=== PATIENT | male | born 1940 | race Caucasian/White ===

== ENCOUNTER → 2018-03-07 10:06 | Outpatient (CLI) | payer MEDICARE, SELFPAY | PROVIDERS: Visit Provider Urology | DX: C61 Malignant neoplasm of prostate (principal) | CPT/HCPCS: 36415; 84153 ==

== ENCOUNTER → 2019-02-21 12:41 | Outpatient (CLI) | payer MEDICARE, SELFPAY ==
[2019-02-21 14:11] LABS: Prostate Specific Antigen 1.27 ng/mL (0.10-4.00)
== END ==
PROVIDERS: Visit Provider Urology
DX: C61 Malignant neoplasm of prostate (principal)
CPT/HCPCS: 36415; 84153

== ENCOUNTER → 2020-12-19 11:42 | Outpatient (CLI) | payer MEDICARE, SELFPAY ==
[2020-12-19 12:48] LABS: BUN Creatinine Ratio 20.2 (6-22); Blood Urea Nitrogen 17 mg/dL (9-20); Calcium 9.2 mg/dL (8.4-10.2); Carbon Dioxide 29 mmol/L (22-32); Chloride 103 mmol/L (98-107); Estimated Glomerular Filt Rate > 60.0 mL/min (>60); Glucose 90 mg/dL (80-110); HEMOLYSIS < 15 (0-50); Potassium 3.5 mmol/L (3.4-5.1); Sodium 137 mmol/L (137-145)
== END ==
PROVIDERS: PCP Student in an Organized Health Care Education/Training Program; Referring Provider Student in an Organized Health Care Education/Training Program; Visit Provider Student in an Organized Health Care Education/Training Program
DX: I10 Essential (primary) hypertension (principal); L03.032 Cellulitis of left toe
CPT/HCPCS: 36415; 80048

== ENCOUNTER → 2021-05-06 10:03 | Outpatient (CLI) | payer MEDICARE, SELFPAY ==
--- NOTE | 2021-05-06 10:04 | DI.RAD.S_ITS ---
PROCEDURE: XR ACUTE ABDOMEN SERIES INDICATIONS: obstipation TECHNIQUE: One view chest and two views of the abdomen were acquired. COMPARISON: None. FINDINGS: Surgical changes and devices: Left hip arthroplasty. Chest: Lungs are clear. Heart size is normal. No pleural effusions. No pneumoperitoneum. Abdomen: Bowel gas pattern is normal. No suspicious calcifications. Visualized solid organ contours appear normal. Bones: No suspicious bony lesions. IMPRESSION: No acute process. Dictated by: Trevon Andrews M.D. on 05/06/2021 at 11:02 Approved by: Trevon Andrews M.D. on 05/06/2021 at 11:03
[2021-05-06 10:47] LABS: Add Manual Diff / Slide Review NO; Basophils Absolute Auto 0 /uL (0-100); Basophils Percent Auto 0.3 % (0-2); Eosinophils Absolute Auto 100 /uL (0-450); Eosinophils Percent Auto 0.6 % (2-4); Hemoglobin 17.4 g/dL (13.5-17.5); Lymphocytes Absolute Auto 2000 /uL (1100-4500); Lymphocytes Percent Auto 20.5 % (25-40); Mean Corpuscular HGB Conc 34.8 % (30-36); Mean Corpuscular Hemoglobin 32.8 PG (26-34); Mean Corpuscular Volume 94.3 fL (80-100); Monocytes Absolute Auto 900 /uL (0-900); Neutrophils Absolute Auto 6800 /uL (1500-7000); Neutrophils Percent Auto 69.6 % (50-75); Platelet Count 198 X10^3/uL (150-400); Red Cell Distribution Width 13.1 % (11.6-14.8); White Blood Cell Count 9.7 X10^3/uL (4.5-11.0)
[2021-05-06 11:08] LABS: Alanine Aminotransferase 20 IU/L (<50); Albumin 4.5 g/dL (3.5-5.0); Albumin Globulin Ratio 1.7 (1.0-2.8); Alkaline Phosphatase 54 U/L (38-126); Aspartate Aminotransferase 23 IU/L (17-59); BUN Creatinine Ratio 24.1 (6-22); Bilirubin Total 1.6 mg/dL (0.2-1.3); Blood Urea Nitrogen 26 mg/dL (9-20); Calcium 9.3 mg/dL (8.4-10.2); Carbon Dioxide 32 mmol/L (22-32); Chloride 96 mmol/L (98-107); Estimated Glomerular Filt Rate > 60.0 mL/min (>60); Globulin 2.7 g/dL (1.7-4.1); Glucose 108 mg/dL (80-110); HEMOLYSIS < 15 (0-50); Potassium 2.9 mmol/L (3.4-5.1); Sodium 134 mmol/L (137-145); Total Protein 7.2 g/dL (6.3-8.2)
[2021-05-06 11:44] LABS: TSH w/ Reflex to FT4 2.13 uIU/mL (0.47-4.68)
== END ==
PROVIDERS: PCP Student in an Organized Health Care Education/Training Program; Referring Provider Internal Medicine; Visit Provider Internal Medicine
DX: I10 Essential (primary) hypertension (principal); K59.00 Constipation, unspecified
CPT/HCPCS: 36415; 74022; 80053; 84443; 85025

== ENCOUNTER → 2024-03-16 10:25 | Outpatient (CLI) | payer MEDICARE, SELFPAY ==
[2024-03-16 12:55] LABS: Prostate Specific Antigen 0.085 ng/mL (0.10-4.00)
== END ==
PROVIDERS: PCP Student in an Organized Health Care Education/Training Program; Referring Provider Nurse Practitioner Family; Visit Provider Nurse Practitioner Family
DX: C61 Malignant neoplasm of prostate (principal)
CPT/HCPCS: 36415; 84153

== ENCOUNTER 2024-11-25 12:53 | Emergency (ER) | payer MEDICARE, SELFPAY ==
[2024-11-25 13:10] VITALS: BP 189/100; PULSE 89; RESP 22; O2SAT 98; BMI 23.6
[2024-11-25 13:26] LABS: Add Manual Diff / Slide Review NO; Basophils Absolute Auto 0 /uL (0-100); Basophils Percent Auto 0.2 % (0-2); Eosinophils Absolute Auto 0 /uL (0-450); Eosinophils Percent Auto 0.4 % (2-4); Hematocrit 40.7 % (41-53); Hemoglobin 14.1 g/dL (13.5-17.5); Lymphocytes Absolute Auto 900 /uL (1100-4500); Lymphocytes Percent Auto 14.6 % (25-40); Mean Corpuscular HGB Conc 34.6 % (30-36); Mean Corpuscular Hemoglobin 32.1 PG (26-34); Mean Corpuscular Volume 92.8 fL (80-100); Monocytes Absolute Auto 500 /uL (0-900); Monocytes Percent Auto 7.4 % (3-14); Neutrophils Absolute Auto 4800 /uL (1500-7000); Neutrophils Percent Auto 77.4 % (50-75); Platelet Count 290 X10^3/uL (150-400); Red Blood Cell Count 4.39 X10^6/uL (4.5-5.9); Red Cell Distribution Width 13.3 % (11.6-14.8); White Blood Cell Count 6.1 X10^3/uL (4.5-11.0)
--- NOTE | 2024-11-25 13:45 | ED.ABDPAIN ---
HPI - Abdominal Pain General Chief Complaint: Abdominal Pain Stated Complaint: hard of rock stomach and filled up Time Seen by Provider: 11/25/24 13:03 Source: patient Mode of arrival: Ambulatory History of Present Illness HPI narrative: Patient here with . Complains 2 weeks abdominal bloating but no pain. No bowel movement changes. No black or bloody stools. No prior history of abdominal surgical history no history of colonoscopy. No prior history of pancreatitis or liver disease. While in [place] patient had ultrasound done because he had surgery for his peripheral artery disease in his legs and found to have ascites. Patient has no trouble breathing. No back pain. No night sweats or weight loss. Related Data Home Medications Medication Instructions Recorded Confirmed Lupron? IM 12/19/20 03/23/22 amlodipine 10 mg tablet 10 mg PO DAILY 12/19/20 03/23/22 losartan 50 mg-hydrochlorothiazide 1 tab PO DAILY 12/19/20 03/23/22 12.5 mg tablet metoprolol succinate 50 mg 50 mg PO DAILY 12/19/20 03/23/22 tablet,extended release 24 hr Allergies Allergy/AdvReac Type Severity Reaction Status Date / Time No Known Drug Allergies Allergy Verified 11/25/24 13:10 Review of Systems Review of Systems Narrative: GENERAL: Negative chills, fatigue, malaise, fever, sweats. HEENT: Negative sinus pain, ear pain, sore throat RESPIRATORY: Negative dyspnea, cough CARDIOVASCULAR: Negative chest pain, palpitations GASTROINTESTINAL: Negative vomiting, nausea, positive abdominal pain : Negative dysuria, frequency, hematuria MUSCULOSKELETAL: Negative muscle or bony pain SKIN: Negative rash, skin lesions NEUROLOGIC: Negative weakness, numbness ROS Unobtainable: All systems reviewed & are unremarkable except as noted in HPI and below Patient History Social History Smoking Status: Former smoker Smoking Status: Former smoker Alcohol type: hard liquor Exam Narrative Exam Narrative: GENERAL: in no distress, not toxic not dyspneic HEAD: Normocephalic. EYES: Pupils equal round ENT: Mucous membranes moist. NECK: Trachea midline. CARDIOVASCULAR: Regular rate and rhythm RESPIRATORY: Clear to auscultation. Breath sounds equal bilaterally. No wheezes, rales, or rhonchi. GASTROINTESTINAL: Abdomen soft, non-tender, abdomen is slightly distended bowel sounds are present no peritoneal signs no guarding or rebound. EXTREMITIES: No gross deformities. BACK: No flank tenderness. NEURO: AOx4. Clear speech SKIN: Warm and dry PSYCH: Not anxious, is cooperative Initial Vital Signs Initial Vital Signs: Vital Signs Pulse Rate 89 11/25/24 13:10 Respiratory Rate 22 11/25/24 13:10 Blood Pressure 189/100 H 11/25/24 13:10 Pulse Oximetry 98 11/25/24 13:10 Oxygen Delivery Method Room Air 11/25/24 13:10 Course Orders Ordered: Discontinued Medications Sodium Chloride (Normal Saline 0.9%) 500 mls @ 1,000 mls/hr IV BOLUS ONE Stop: 11/25/24 14:14 Last Infusion: 11/25/24 14:24 Dose: Infused Documented By: Admin: 11/25/24 13:57 Dose: 1,000 mls/hr Documented By: KAYLEE Ondansetron HCl (Ondansetron 4 Mg/2 Ml Inj) 4 mg IV NOW PRN PRN Reason: Nausea And Vomiting Ondansetron HCl (Ondansetron 4 Mg Odt) 4 mg PO NOW PRN PRN Reason: Nausea And Vomiting Vital Signs Vital signs: Vital Signs - 8 hr 11/25/24 13:10 11/25/24 14:05 11/25/24 15:03 Pulse Rate 89 78 87 Respiratory Rate 22 21 19 Blood Pressure 189/100 H 182/97 H Pulse Oximetry 98 97 96 Oxygen Delivery Method Room Air Room Air MDM - Abdominal Pain Lab Data 11/25/24 13:15 11/25/24 13:15 Labs: Lab Results 11/25/24 11/25/24 11/25/24 Range/Units 13:15 13:15 14:16 WBC 6.1 (4.5-11.0) X10^3/uL RBC 4.39 L (4.5-5.9) X10^6/uL Hgb 14.1 (13.5-17.5) g/dL Hct 40.7 L (41-53) % MCV 92.8 (80-100) fL MCH 32.1 (26-34) PG MCHC 34.6 (30-36) % RDW 13.3 (11.6-14.8) % Plt Count 290 (150-400) X10^3/uL Neut % (Auto) 77.4 H (50-75) % Lymph % (Auto) 14.6 L (25-40) % [place] % (Auto) 7.4 (3-14) % Eos % (Auto) 0.4 L (2-4) % Baso % (Auto) 0.2 (0-2) % Neut # (Auto) 4800 (4741-2751) /uL Lymph # (Auto) 900 L (6265-4321) /uL [place] # (Auto) 500 (0-900) /uL Eos # (Auto) 0 (0-450) /uL Baso # (Auto) 0 (0-100) /uL PT 14.6 H (9.4-12.5) SECONDS INR 1.3 (0.9-1.3) APTT 40 H (25.1-36.5) SECONDS Sodium 133 L (137-145) mmol/L Potassium 2.9 L (3.4-5.1) mmol/L Chloride 99 (98-107) mmol/L Carbon Dioxide 28 (22-32) mmol/L BUN 13 (9-20) mg/dL Creatinine 0.89 (0.66-1.25) mg/dL Estimated GFR > 60 (>60) mL/min BUN/Creatinine Ratio 14.6 (6-22) Glucose 116 H (80-110) mg/dL Calcium 8.2 L (8.4-10.2) mg/dL Total Bilirubin 1.3 (0.2-1.3) mg/dL AST 24 (17-59) IU/L ALT 14 (<50) IU/L Alkaline Phosphatase 69 (38-126) U/L Total Protein 6.5 (6.3-8.2) g/dL Albumin 3.8 (3.5-5.0) g/dL Globulin 2.7 (1.7-4.1) g/dL Albumin/Globulin Ratio 1.4 (1.0-2.8) Lipase Cancelled 75 Urine RBC >100/hpf H (0-5/HPF) Urine WBC None seen (0-5/HPF) Ur Squamous Epith Cells 0-1 /hpf (0-5/HPF) Urine Bacteria None seen (None) Ur Culture Indicated? Cult not indicated Vol Urine Centrifuged 10ml (spun) Hep Bs Antigen Negative (NEGATIVE) s/c Point of care testing: Urine Dip Bedside Urine Glucose Negative Bedside Urine Bilirubin - Negative Bedside Urine Ketone - Negative Urine Specific [place] 1.010 Bedside Urine Occult Blood +++ Bedside Urine pH 7.0 Bedside Urine Protein - Negative Bedside Urine Urobilinogen - Negative Bedside Urine Nitrite - Negative Bedside Urine Leukocytes - Negative Esterase Imaging Data CT scan - abdomen/pelvis: Radiologist's Impression: [address] [address] [address] Scan Report Signed Patient: Jus Hernandez MR#: [id number] : 1940 Acct:[id number] Age/Sex: 84 / M Date of Service: 11/25/24 Loc: ED Accession Number: [id number] Procedure: CT abdomen pelvis w con Ordering Provider: Bhupinder Theodore MD PROCEDURE: CT ABDOMEN PELVIS W CON INDICATIONS: IV contrast only/abdominal bloating/discomfort TECHNIQUE: After the administration of intravenous contrast, axial sections acquired from the lung bases to the pubic symphysis. Coronal and sagittal reformats were performed. For radiation dose reduction, the following was used: automated exposure control, adjustment of mA and/or kV according to patient size. COMPARISON: None. FINDINGS: Image quality: Diagnostic. Lower Chest: Reticular thickening and consolidation within the left lower lobe. Severe coronary artery calcifications ABDOMEN: Liver: Mildly nodular contour of the liver. Gallbladder: No radiopaque gallstones or wall thickening. Biliary ducts: No biliary dilation. Pancreas: No ductal dilation. Spleen: Size is within normal limits. Adrenal Glands: No adrenal nodules. Kidneys and Ureters: Atrophic appearing right kidney. 3 mm nonobstructive right kidney stone. Central left renal stone measuring 7 mm. Stomach and Bowel: Normal colonic caliber, without significant wall thickening. Numerous colonic diverticula Peritoneum: Large volume ascites. No free air. Ventral Wall: No significant ventral hernia. Abdominal Nodes: No retroperitoneal or mesenteric adenopathy by size criteria. Vessels: Infrarenal abdominal aorta measuring 3.1 cm. PELVIS: Pelvic Organs: Unremarkable. Bladder: No bladder wall thickening, accounting for underdistention. Pelvic Nodes: No enlarged lymph nodes. Miscellaneous: No inguinal hernias are seen. Bones: No aggressive osseous abnormality. Left hip prosthesis. IMPRESSION: * Moderate to large volume ascites. * Cirrhotic morphology of the liver. * Small infrarenal abdominal aortic aneurysm measuring 3.1 cm. * Nonobstructive bilateral nephroliths. * Diverticulosis. The detection of acute diverticulitis is limited with ascites. Dictated by: Bhupinder Honeycutt M.D. on 11/25/2024 at 14:39 Approved by: Bhupinder Honeycutt M.D. on 11/25/2024 at 14:45 [facility] Narrative Medical decision making narrative: Patient here with . Complains 2 weeks abdominal bloating but no pain. No bowel movement changes. No black or bloody stools. No prior history of abdominal surgical history no history of colonoscopy. No prior history of pancreatitis or liver disease. While in [place] patient had ultrasound done because he had surgery for his peripheral artery disease in his legs and found to have ascites. Patient has no trouble breathing. No back pain. No night sweats or weight loss. After history and exam, CBC CMP lipase CT abdomen pelvis urinalysis [facility] Medical records reviewed: No recent visit for this complaint Differential considered: Includes but not limited to ascites liver disease bowel obstruction colitis pancreatitis colitis diverticulitis ileus neoplasm Lab Test results independently reviewed as above. Pertinent findings: WBC 6.1 hemoglobin 14.1 platelets 290 sodium 133 potassium 2.9 which appears to be baseline compared to May 06, 2021, BUN 13 creatinine 0.89 GFR greater than 60 AST 24 ALT 14 lipase 75, urinalysis positive blood Imaging studies independently reviewed: CT abdomen pelvis moderate ascites Consultations: 4:11 p.m.. Spoke with [facility] with Gastroenterology, Dr. Emre Alvarado, she will follow up with patient in the office. No urgent paracentesis indicated today. Would like to add hepatitis B surface antigen, this was completed as well as INR, however we do not have hepatitis-C antibody here on our laboratory order list. Re-evaluations: 4:15 p.m.. Updated patient and results. Referral for GI will be provided. Return precautions reviewed. They do understand no urgent paracentesis indicated. Return precautions reviewed. Unknown source at this time for the liver cirrhosis and ascites. Patient is pain-free. Blood pressure was reviewed. However patient asymptomatic from this at this time. They will recheck blood pressure at home. They will follow up with primary care for re-evaluation of blood pressure and will keep a journal. Discussion: Appropriate for discharge home. Exam is reassuring. No fever no leukocytosis abdomen is nontender. No paracentesis indicated this time. GI was consulted. Return precautions reviewed. They desire discharge home. Paracentesis not indicated at this time. Diagnosis: Ascites Discharge Plan Departure Patient Disposition: Home Clinical Impression: Abdominal ascites Qualifiers: Ascites type: other type Qualified Code(s): R18.8 - Other ascites Instructions: DI for Ascites, DI for Cirrhosis Activity Restrictions/Additional Instructions: At this time unknown source for your liver cirrhosis and ascites/fluid in your abdomen. Gastroenterology service was contacted tonight and you will need to call their office for follow up, call on Wednesday. Please avoid alcoholic beverages. Please avoid Tylenol products. No new prescriptions are indicated this time. Fluid does not need to be removed today from your abdomen. Return if worse or if any questions or concerns. Please call provided primary care provider phone number to obtain family doctor, , or call your prior primary care office for new family doctor. Prescriptions: No Action losartan-hydrochlorothiazide 50-12.5 mg tablet 1 tab PO DAILY metoprolol succinate 50 mg tablet extended release 24 hr 50 mg PO DAILY amlodipine 10 mg tablet 10 mg PO DAILY Lupron? IM Referrals: Emre Alvarado MD [Non-Staff] - Stand Alone Forms: Patient Portal/API/Survey
[2024-11-25] MEDS: SODIUM CHLORIDE 0.9% 500 ML 1000 ML IV (13:57)
[2024-11-25 14:05] VITALS: PULSE 78; RESP 21; O2SAT 97
[2024-11-25 14:10] LABS: Alanine Aminotransferase 14 IU/L (<50); Albumin 3.8 g/dL (3.5-5.0); Albumin Globulin Ratio 1.4 (1.0-2.8); Alkaline Phosphatase 69 U/L (38-126); Aspartate Aminotransferase 24 IU/L (17-59); BUN Creatinine Ratio 14.6 (6-22); Bilirubin Total 1.3 mg/dL (0.2-1.3); Blood Urea Nitrogen 13 mg/dL (9-20); Calcium 8.2 mg/dL (8.4-10.2); Carbon Dioxide 28 mmol/L (22-32); Chloride 99 mmol/L (98-107); Estimated Glomerular Filt Rate > 60 mL/min (>60); Globulin 2.7 g/dL (1.7-4.1); Glucose 116 mg/dL (80-110); HEMOLYSIS < 15 (0-50); Potassium 2.9 mmol/L (3.4-5.1); Sodium 133 mmol/L (137-145); Total Protein 6.5 g/dL (6.3-8.2)
[2024-11-25 14:14] LABS: Lipase 75 U/L (23-300)
[2024-11-25 14:45] LABS: Bacteria Urine None Seen; RBC Urine >100/HPF (0-5/HPF); Squamous Epithelial Cell Urine 0-1 /HPF (0-5/HPF); Urine Volume 10mL (spun); WBC Urine None Seen (0-5/HPF)
[2024-11-25 14:46] LABS: Culture Indicated Urine Cult Not Indicated
[2024-11-25 15:03] VITALS: BP 182/97; PULSE 87; RESP 19; O2SAT 96
[2024-11-25 15:30] VITALS: BP 168/98; PULSE 78; RESP 14; O2SAT 96
[2024-11-25 16:00] VITALS: BP 170/101; PULSE 79; RESP 24; O2SAT 97
[2024-11-25 16:24] LABS: INR 1.3 (0.9-1.3); Prothrombin Time 14.6 SECONDS (9.4-12.5)
[2024-11-25 16:27] LABS: PTT Partial Thromboplastin Tim 40 SECONDS (25.1-36.5)
[2024-11-25 17:08] LABS: Hepatitis B Surface Antigen NEGATIVE s/c (NEGATIVE)
== END 2024-11-25 16:24 | disposition home or self-care (01) ==
PROVIDERS: Emergency Provider Emergency Medicine
DX: R18.8 Other ascites (principal)
CPT/HCPCS: 36415; 74177; 80053; 81003; 81015; 83690; 85025; 85610; 85730; 87340; 99284; Q9967

== ENCOUNTER → 2025-02-06 15:22 | Outpatient (CLI) | payer MEDICARE, SELFPAY ==
[2025-02-06 17:24] LABS: Add Manual Diff / Slide Review NO; Hematocrit 39.4 % (41-53); Hemoglobin 13.6 g/dL (13.5-17.5); Lymphocytes Absolute Auto 1300 /uL (1100-4500); Mean Corpuscular HGB Conc 34.6 % (30-36); Mean Corpuscular Hemoglobin 30.1 PG (26-34); Mean Corpuscular Volume 87.0 fL (80-100); Platelet Count 256 X10^3/uL (150-400)
[2025-02-06 18:21] LABS: Alanine Aminotransferase 15 IU/L (<50); Albumin 3.9 g/dL (3.5-5.0); Albumin Globulin Ratio 1.4 (1.0-2.8); Alkaline Phosphatase 63 U/L (38-126); Blood Urea Nitrogen 27 mg/dL (9-20); Calcium 8.9 mg/dL (8.4-10.2); Estimated Glomerular Filt Rate > 60 mL/min (>60); Globulin 2.7 g/dL (1.7-4.1); Glucose 102 mg/dL (70-99); HEMOLYSIS < 15 (0-50); Sodium 128 mmol/L (137-145); Total Protein 6.6 g/dL (6.3-8.2)
[2025-02-06 18:41] LABS: Chloride 73 mmol/L (98-107); Potassium 2.2 mmol/L (3.4-5.1)
[2025-02-06 18:42] LABS: Carbon Dioxide 44 mmol/L (22-32)
[2025-02-06 18:50] LABS: TSH w/ Reflex to FT4 1.37 uIU/mL (0.47-4.68)
== END ==
PROVIDERS: Physician Assistant; PCP Family Medicine; Referring Provider Family Medicine; Visit Provider Family Medicine
DX: R53.83 Other fatigue (principal)
CPT/HCPCS: 36415; 80053; 84443; 85025

== ENCOUNTER → 2025-02-07 15:01 | Outpatient (CLI) | payer MEDICARE, SELFPAY ==
[2025-02-07 21:28] LABS: Alanine Aminotransferase 13 IU/L (<50); Albumin 3.5 g/dL (3.5-5.0); Albumin Globulin Ratio 1.4 (1.0-2.8); Alkaline Phosphatase 52 U/L (38-126); Blood Urea Nitrogen 29 mg/dL (9-20); Calcium 8.6 mg/dL (8.4-10.2); Chloride 78 mmol/L (98-107); Estimated Glomerular Filt Rate > 60 mL/min (>60); Globulin 2.5 g/dL (1.7-4.1); Glucose 111 mg/dL (70-99); HEMOLYSIS < 15 (0-50); Sodium 130 mmol/L (137-145); Total Protein 6.0 g/dL (6.3-8.2)
[2025-02-07 21:41] LABS: Carbon Dioxide 44 mmol/L (22-32); Potassium 2.3 mmol/L (3.4-5.1)
== END ==
PROVIDERS: PCP Family Medicine; Referring Provider Family Medicine; Visit Provider Family Medicine
DX: I10 Essential (primary) hypertension (principal); R62.7 Adult failure to thrive
CPT/HCPCS: 36415; 80053

== ENCOUNTER → 2025-02-13 14:33 | Outpatient (CLI) | payer MEDICARE, SELFPAY ==
[2025-02-13 15:30] LABS: Hemoglobin A1C% w Est Avg Glu 4.9 % (4.0-6.0)
[2025-02-13 15:32] LABS: Alanine Aminotransferase 14 IU/L (<50); Albumin 3.4 g/dL (3.5-5.0); Albumin Globulin Ratio 1.4 (1.0-2.8); Alkaline Phosphatase 50 U/L (38-126); Blood Urea Nitrogen 26 mg/dL (9-20); Calcium 8.8 mg/dL (8.4-10.2); Carbon Dioxide 35 mmol/L (22-32); Chloride 92 mmol/L (98-107); Estimated Glomerular Filt Rate > 60 mL/min (>60); Globulin 2.4 g/dL (1.7-4.1); Glucose 121 mg/dL (70-99); HEMOLYSIS < 15 (0-50); Potassium 3.4 mmol/L (3.4-5.1); Sodium 131 mmol/L (137-145); Total Protein 5.8 g/dL (6.3-8.2)
== END ==
PROVIDERS: PCP Family Medicine; Referring Provider Family Medicine; Visit Provider Family Medicine
DX: E87.6 Hypokalemia (principal); I10 Essential (primary) hypertension
CPT/HCPCS: 36415; 80053; 83036

== ENCOUNTER → 2025-03-08 14:46 | Outpatient (CLI) | payer MEDICARE, SELFPAY | PROVIDERS: PCP Family Medicine; Visit Provider Family Medicine | DX: N39.0 Urinary tract infection, site not specified (principal) | CPT/HCPCS: 81002; 87086 ==

== ENCOUNTER → 2025-03-19 16:55 | Outpatient (CLI) | payer MEDICARE, SELFPAY ==
[2025-03-19 19:08] LABS: Alanine Aminotransferase 9 IU/L (<50); Albumin 3.1 g/dL (3.5-5.0); Albumin Globulin Ratio 1.2 (1.0-2.8); Alkaline Phosphatase 65 U/L (38-126); Blood Urea Nitrogen 14 mg/dL (9-20); Calcium 8.0 mg/dL (8.4-10.2); Carbon Dioxide 27 mmol/L (22-32); Chloride 102 mmol/L (98-107); Estimated Glomerular Filt Rate > 60 mL/min (>60); Globulin 2.6 g/dL (1.7-4.1); Glucose 96 mg/dL (70-99); HEMOLYSIS < 15 (0-50); Potassium 4.1 mmol/L (3.4-5.1); Sodium 132 mmol/L (137-145); Total Protein 5.7 g/dL (6.3-8.2)
[2025-03-19 19:10] LABS: NT-proBNP (BNP-Adult 18+) 770 pg/mL (<450)
== END ==
PROVIDERS: PCP Family Medicine; Referring Provider Family Medicine; Visit Provider Family Medicine
DX: I50.9 Heart failure, unspecified (principal)
CPT/HCPCS: 80053; 83880

== ENCOUNTER 2025-05-21 07:26 | Outpatient (CLI) | payer MEDICARE, SELFPAY ==
--- NOTE | 2025-05-21 07:27 | DI.US.S_ITS ---
PROCEDURE: US PARACENTESIS W/ALBUMIN INDICATIONS: Ascites due to alcoholic cirrhosis Cirrhosis with TECHNIQUE: The indications, alternatives, benefits, risks, and complications of the procedure were explained to the patient. Written informed consent was obtained and placed in the chart. The abdomen and pelvis were examined sonographically, and an appropriate site was chosen for paracentesis. The skin was prepared and draped in the usual sterile fashion, and 1% lidocaine was infiltrated from the skin down through the peritoneal surface. A 19-gauge catheter-covered needle was then introduced into the peritoneal space, the catheter was advanced and the needle was withdrawn, and thereafter peritoneal fluid was withdrawn. The catheter was then removed and a dressing was applied. The fluid was discarded if the clinician did not order diagnostic testing of the fluid. COMPARISON: None. FINDINGS: Access site: Right lower quadrant Needle: One-Step centesis catheter with introducer needle. Fluid volume and description: 7950 cc yellow Fluid sent for diagnostic testing: No Medications: 1% lidocaine for local anaesthesia. Complications: None. IMPRESSION: Successful ultrasound-guided paracentesis. Dictated by: Lolita Cardenas M.D. on 05/24/2025 at 14:02 Approved by: Lolita Cardenas M.D. on 05/24/2025 at 14:02
[2025-05-21 07:50] VITALS: BP 189/111; PULSE 92; RESP 16; TEMP 36.5; O2SAT 95
[2025-05-21 08:17] LABS: Hematocrit 41.0 % (41-53); Hemoglobin 13.8 g/dL (13.5-17.5); Mean Corpuscular HGB Conc 33.7 % (30-36); Mean Corpuscular Hemoglobin 29.6 PG (26-34); Mean Corpuscular Volume 88.0 fL (80-100); Platelet Count 344 X10^3/uL (150-400)
[2025-05-21 08:22] LABS: INR 1.0 (0.9-1.3); Prothrombin Time 11.4 SECONDS (9.4-12.5)
[2025-05-21 08:24] LABS: PTT Partial Thromboplastin Tim 33 SECONDS (25.1-36.5)
[2025-05-21] MEDS: ALBUMIN HUMAN 50 GM/200 ML VIAL IV (09:00)
[2025-05-21 10:25] VITALS: BP 155/73; PULSE 71; RESP 16; TEMP 36.6; O2SAT 97
== END 2025-05-21 10:42 | disposition home or self-care (01) ==
LOC: US 07:26
PROVIDERS: PCP Family Medicine; Referring Provider Family Medicine; Visit Provider Family Medicine
DX: K70.31 Alcoholic cirrhosis of liver with ascites (principal)
CPT/HCPCS: 49083; 85027; 85610; 85730; 96365; 96366; P9041

== ENCOUNTER 2025-06-11 08:10 | Outpatient (CLI) | payer MEDICARE, SELFPAY ==
[2025-06-11] VITALS (10 sets, daily range): BP systolic 163–190; BP diastolic 80–104; PULSE 69–81; RESP 14–16; TEMP 36.7; O2SAT 96–99
--- NOTE | 2025-06-11 08:12 | DI.US.S_ITS ---
PROCEDURE: US PARACENTESIS W/ALBUMIN INDICATIONS: ASCITES TECHNIQUE: The indications, alternatives, benefits, risks, and complications of the procedure were explained to the patient. Written informed consent was obtained and placed in the chart. The abdomen and pelvis were examined sonographically, and an appropriate site was chosen for paracentesis. The skin was prepared and draped in the usual sterile fashion, and 1% lidocaine was infiltrated from the skin down through the peritoneal surface. A 19-gauge catheter-covered needle was then introduced into the peritoneal space, the catheter was advanced and the needle was withdrawn, and thereafter peritoneal fluid was withdrawn. The catheter was then removed and a dressing was applied. The fluid was discarded if the clinician did not order diagnostic testing of the fluid. COMPARISON: [facility], PARACENTESIS W/ALBUMIN, 05/21/2025, 8:15. FINDINGS: Access site: Right lower quadrant Needle: One-Step centesis catheter with introducer needle. Fluid volume and description: 11,200 yellow Fluid sent for diagnostic testing: None Medications: 1% lidocaine for local anaesthesia. Complications: None. IMPRESSION: Successful ultrasound-guided paracentesis. Dictated by: Lolita Cardenas M.D. on 06/11/2025 at 16:00 Approved by: Lolita Cardenas M.D. on 06/11/2025 at 16:00
[2025-06-11] MEDS: ALBUMIN HUMAN 50 GM/200 ML VIAL IV (09:37)
== END 2025-06-11 11:24 | disposition home or self-care (01) ==
PROVIDERS: PCP Family Medicine; Referring Provider Family Medicine; Visit Provider Family Medicine
DX: K70.31 Alcoholic cirrhosis of liver with ascites (principal)
CPT/HCPCS: 49083; 96365; 96366; P9041